=== PATIENT | male | born 1995 | race Two or more races ===

== ENCOUNTER 2018-09-05 02:05 | Emergency (ER) | payer SELFPAY ==
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
[2018-09-05 07:00] VITALS: BP 123/69
--- NOTE | 2018-09-05 11:49 | ASMTCAGE ---
CAGE Additional Comments pt discharged before CAGE could be completed Date Signed: 09/05/2018 11:49 AM Electronically Signed By:Gena Daley RN
== END 2018-09-05 07:21 | disposition home or self-care (01) ==
DX: S00.81XA Abrasion of other part of head, initial encounter (principal); S00.11XA Contusion of right eyelid and periocular area, initial encounter; F10.920 Alcohol use, unspecified with intoxication, uncomplicated; Y04.8XXA Assault by other bodily force, initial encounter; Y92.89 Other specified places as the place of occurrence of the external cause; Y99.9 Unspecified external cause status; Y93.9 Activity, unspecified